=== PATIENT | female | born 1950 | race Caucasian/White ===

== ENCOUNTER 2023-05-12 02:11 | Inpatient (IN) | payer MEDICARE, BC, SELFPAY ==
[2023-05-12] VITALS (17 sets, daily range): BP systolic 90–154; BP diastolic 58–98; PULSE 55–96; RESP 14–22; TEMP 36.1–36.9; O2SAT 97–100; BMI 31.2
--- NOTE | ~2023-05-12 | XR_ITS ---
Portable chest x-ray Comparison: None Clinical History: Chest pain Findings: Lungs are clear, without focal consolidation or pleural effusion. Cardiomediastinal silho uette is unremarkable. Bones and soft tissues are unremarkable. Impression: Clear lungs. Reviewed, dictated and finalized at location M. [employer]IA Impression: Clear lungs.
--- NOTE | 2023-05-12 02:17 | ED.CHESTPAIN ---
HPI - Chest Pain General Chief Complaint: Chest Pain Stated Complaint: CP/STEMI Time Seen by Provider: 05/12/23 02:15 History of Present Illness HPI narrative: Patient is a 72-year-old female presenting as a STEMI alert. Patient states that her blood sugars were running high yesterday. She felt generally unwell but did not have any specific complaints. last night around 10:30 p.m. she developed substernal chest pain that has persisted for the last 3 hours. She called EMS obtained a 12 lead that showed an inferior STEMI. She received aspirin en route. On arrival, she continues to complain of chest pain. States that she also feels nauseated. Related Data Home Medications Medication Instructions Recorded Confirmed insulin aspart U-100 100 unit/mL 1 - 60 sliding scale dose subcut 05/12/23 05/12/23 (3 mL) subcutaneous pen (Novolog TID FlexPen U-100 Insulin aspart) insulin degludec 100 unit/mL (3 55 unit subcut DAILY 05/12/23 05/12/23 mL) subcutaneous pen (Tresiba FlexTouch U-100 insulin) Allergies Allergy/AdvReac Type Severity Reaction Status Date / Time SCALLOPS Allergy Mild Uncoded 01/01/09 13:57 Review of Systems Review of Systems: ROS unobtainable: Yes unobtainable due to medical condition [facility] Past Medical History Medical History (Updated 05/12/23 @ 02:57 by Robin hCance MD) Diabetes mellitus Social History Social History (Updated 05/12/23 @ 02:57 by Robin Chance MD) Smoking status: Never smoker Alcohol intake: former Substance use: never Lack of Transportation: No Lack of Food: Never True Current Housing: Decline to Answer Concerned About Future Housing: No Difficulty Paying Gas/Electric Bills: No Difficulty Paying for Meds: No Currently Unemployed: No Education: Decline to Answer Difficulty w/ Childcare or Family Care: No Spiritual care concerns: No Exam Narrative: GENERAL: Nontoxic, intermittently vomiting HEAD: Normocephalic, atraumatic. EYES: PERRLA and EOMI. ENT: grossly unremarkable NECK: Supple. CHEST: Clear to auscultation. No respiratory distress. HEART: Regular rate and rhythm. Normal peripheral pulses. ABDOMEN: Soft, nontender, nondistended EXTREMITIES: Normal range of motion. No edema. SKIN: Warm, dry, no rash. NEURO: No focal deficits. Alert and oriented x3. PSYCH: Normal mood and affect. Course Vital Signs Vital signs: Vital Signs Temperature 96.9 F L 05/12/23 02:09 Pulse Rate 92 05/12/23 02:09 Respiratory Rate 15 05/12/23 02:09 Blood Pressure 144/87 H 05/12/23 02:09 Pulse Oximetry 100 05/12/23 02:09 Oxygen Delivery Room Air 05/12/23 02:09 Temperature 98.2 F 05/13/23 03:58 Pulse Rate 75 05/13/23 04:00 Respiratory Rate 18 05/13/23 03:58 Blood Pressure 116/46 L 05/13/23 03:58 Pulse Oximetry 97 05/13/23 03:58 Oxygen Delivery Room Air 05/12/23 16:00 MDM - Chest Pain MDM Narrative Medical decision making narrative: 72-year-old female presenting as a STEMI alert. EKG on arrival confirms inferior STEMI with elevations in leads 2, 3, AVF with reciprocal depressions in the precordial leads. Patient already received aspirin. Fluids are ongoing. Morphine for pain. Will load with heparin and Brilinta. syrup machine laborer has been activated. Differential Diagnosis Differential diagnosis: Likely stable angina, unstable angina pectoris, atypical chest pain, st elevation myocardial infarction and chest pain Medical Records Data Attestation: I reviewed the patient's medical records. Lab Data Attestation: I reviewed the patient's lab results. 05/13/23 03:40 05/13/23 03:40 Labs: Lab Results 05/12/23 Range/Units 02:25 WBC 10.5 H (4.5-10.0) K/mm3 RBC 4.35 (4.2-5.4) M/mm3 Hgb 12.7 (12.0-15.0) g/dL Hct 38.8 (37.0-47.0) % MCV 89.2 (80-100) fl MCH 29.2 (26-34) pg MCHC 32.7 (32-36) g/dl RDW 13.0 (11.5-14.5) % Plt Count 366 (15
--- NOTE | 2023-05-12 02:20 | ECG_ITS ---
Measurements Intervals [place] Rate: 94 P: IA: 0 QRS: 87 QRSD: 101 T: 85 QT: 328 QTc: 411 Interpretive Statements ATRIAL FIBRILLATION ST ELEVATION, CONSIDER INFERIOR INFEROLATERAL MYOCARDIAL INFARCTION ACUTE WI NO PREVIOUS ECG AVAILABLE FOR COMPARISON Electronically Signed On 05-12-2023 13:28:17 HIV CTS SPECIALIST by Lisha Godlman M.D.
--- NOTE | 2023-05-12 02:21 | ECG_ITS ---
Measurements Intervals [place] Rate: 89 P: ME: 0 QRS: 79 QRSD: 101 T: 82 QT: 332 QTc: 404 Interpretive Statements ATRIAL FIBRILLATION INFEROLATERAL MYOCARDIAL INFARCTION, ACUTE WITH POSTERIOR EXTENSION [40+ ms Q WAVE AND/OR ST/T ABNORMALITY IN II/aVFPROMI ACUTE NM COMPARED TO ECG 05/12/2023 02:13:54 NO SIGNIFICANT CHANGES Electronically Signed On 05-12-2023 13:29:02 CARAMEL MAKER by Lisha Goldman M.D.
[2023-05-12 02:28] LABS: Glucose Point of Care 262 mg/dl (65-105)
[2023-05-12] MEDS: MORPHINE SULFATE (*CRX) 4 MG/ML INJ IV PUSH (02:29)
[2023-05-12] MEDS: TICAGRELOR 90 MG TABLET 180 MG PO ×2 (02:29→04:45)
[2023-05-12] MEDS: HEPARIN SODIUM 5,000 UNITS/ML VIAL 4000 UNITS IV PUSH (02:30)
[2023-05-12 02:31] LABS: Basophils Percent Auto 0.3 % (0.2-1.2); Eosinophils Percent Auto 0.1 % (0-4.4); Hematocrit 38.8 % (37.0-47.0); Hemoglobin 12.7 g/dL (12.0-15.0); Immature Granulocyte Absolute 0.05 K/mm3 (0.00-0.031); Immature Granulocyte Percent A 0.5 % (0-0.5); Lymphocytes Absolute Auto 1.07 K/mm3 (0.9-3.2); Lymphocytes Percent Auto 10.2 % (18.3-44.2); Mean Corpuscular HGB Conc 32.7 g/dl (32-36); Mean Corpuscular Hemoglobin 29.2 pg (26-34); Mean Corpuscular Volume 89.2 fl (80-100); Mean Platelet Volume 9.7 fl (7.4-10.4); Monocytes Absolute Auto 0.4 K/mm3 (0.1-0.6); Neutrophils Absolute Auto 8.9 K/mm3 (1.3-6.7); Neutrophils Percent Auto 84.9 % (45.5-73.1); Platelet Count Result 366 k/mm3 (150-375); Red Blood Count 4.35 M/mm3 (4.2-5.4); White Blood Count 10.5 K/mm3 (4.5-10.0)
[2023-05-12 02:41] LABS: INR 0.9; Prothrombin Time 12.3 Seconds (11.1-14.7)
[2023-05-12 02:42] LABS: Alanine Aminotransferase 139 U/L (6-35); Albumin Level 3.9 g/dL (3.5-5.1); Alkaline Phosphatase 92 U/L (38-126); Anion Gap 10 mmol/L (8-16); Aspartate Amino Transferase 265 U/L (14-36); Bilirubin,Total 0.6 mg/dL (0.2-1.3); Blood Urea Nitrogen 30 mg/dL (7-17); Calcium 8.7 mg/dL (8.4-10.2); Carbon Dioxide 22 mmol/L (22-30); Chloride 104 mmol/L (98-107); Cholesterol 303 mg/dL (0-200); Estimated CRCL calculation 51 ml/min; Estimated Glomerular Filt Rate > 60; Glucose 311 mg/dL (65-110); HDL Direct 82 mg/dL; Partial Thromboplastin Time 24.3 SECONDS (22.3-36.8); Potassium 3.6 mmol/L (3.4-5.0); Sodium 136 mmol/L (137-145); Triglycerides 109 mg/dL (<150)
[2023-05-12] MEDS: HYDROmorphone HCL INJ (*CRX) 1 MG/ML SYR 0.5 MG IV PUSH (02:43)
[2023-05-12 02:51] LABS: LDL Cholesterol Direct 173 mg/dL
--- NOTE | 2023-05-12 02:54 | PM.IMHP ---
H&P: HPI History of Present Illness Date/Time: 05/12/23 02:54 Chief Complaint: Chest pain for approximately 4 to 5 hours Narrative: 72-year-old female with past medical history of diabetes mellitus ( type 1 as per patient) on insulin; no known prior cardiac history. Patient presented to [facility] Emergency room via EMS with complaints of chest pain that started about 4-5 hours prior to arrival. Her symptoms are associated with shortness of breath, dizziness, nausea and vomiting. Field EKG showed atrial fibrillation with ST elevation in the inferior leads. Cardiac catheterization lab was activated. At the time of evaluation in the labor economics professor, patient was having ongoing chest discomfort. Her EKG on my personal interpretation showed atrial fibrillation with controlled ventricular response, ST elevation in the inferior leads with reciprocal ST depression. Patient denied any prior cardiac history including clinical CA. Emergent coronary angiogram showed 100% thrombotic occlusion of proximal RCA -infarct related vessel. Patient underwent primary PCI / x1 proximal -mid RCA using a Biotronik 4.0 x 30 mm sirolimus eluting stent. During reperfusion, patient became bradycardiac, and hypotensive and required 1 mg of IV atropine and 50 mcg phenylephrine. she was fluid resuscitated with normal saline and was initiated on dopamine IV. Patient had recurrent episodes of nausea and vomiting on the table. Post PCI, dopamine was discontinued with normalization of blood pressure. Patient converted to sinus rhythm/ sinus tachycardia post PCI. Her chest pain almost resolved post PCI. Review of Systems Review of Systems: General: Negative for fever, chills, fatigue Psychological: Negative for anxiety, depression Ophthalmic: negative for loss of vision ENT: Negative for epistaxis, headaches Allergy and immunology: Negative for hives, nasal congestion Hematologic and lymphatic: Negative for overt bleeding problems Endocrine: Negative for hot flashes, palpitations Respiratory: Negative for cough, hemoptysis Cardiovascular: Positive for chest pain, shortness of breath, dizziness Gastrointestinal: positive for nausea vomiting Musculoskeletal: Negative for myalgia, joint pains Neurological: Negative for weakness Dermatological: Negative for rash, skin discoloration PMFSH Past Medical History Medical History (Updated 05/12/23 @ 02:57 by Robin Chance MD) Diabetes mellitus Social History Social History (Updated 05/12/23 @ 02:57 by Robin Chance MD) Smoking status: Never smoker Alcohol intake: never Substance use: never Meds Home Medications and Allergies Allergies Allergy/AdvReac Type Severity Reaction Status Date / Time SCALLOPS Allergy Mild Uncoded 01/01/09 13:57 Vital Signs Vital Signs - 24 hr 05/12/23 02:09 05/12/23 02:38 05/12/23 02:40 Temperature 36.1 C L Pulse Rate 92 87 91 Respiratory Rate 15 14 Blood Pressure 144/87 H 154/93 H Pulse Oximetry 100 100 Oxygen Delivery Room Air Exam Narrative: PHYSICAL EXAMINATION: GENERAL: Alert, oriented, no acute distress MENTAL STATUS: very anxious EYES: Extraocular movements intact, no pallor EARS: External ears appear normal, hearing grossly normal NOSE: Normal and patent, no discharge MOUTH: Mucous membranes moist, tongue normal NECK: Supple, no JVD CHEST: Good respiratory effort, clear to auscultation HEART: normal rate, irregularly irregular rhythm at the time of examination, somewhat distant heart sounds. Patient converted to sinus rhythm/ sinus tachycardia in the labor economics professor post PCI ABDOMEN: Soft, nontender NEUROLOGICAL: Alert, oriented, normal speech, no gross motor deficits MUSCULOSKELETAL: No major deformity, no amputation EXTREMITIES: No pedal edema, no clubbing, no cyanosis SKIN: no rash on the exposed area, no cyanosis PSYCHIATRIC: very anxious H&P: Results Labs Labs: Short CBC
[2023-05-12 02:58] LABS: Troponin I 0.176 ng/mL (0.000-0.034)
--- NOTE | 2023-05-12 04:09 | WPDCARDPROC ---
Cardiac Cath Procedure Note Date of procedure:: 05/12/23 Performing physician:: Robin Chance MD Procedure Procedure note:: CARDIAC CATHETERIZATION AND PERCUTANEOUS CORONARY INTERVENTION REPORT DATE OF PROCEDURE: 05/12/2023 INDICATION FOR PROCEDURE: acute coronary syndrome/ inferior ST-elevation myocardial infarction BRIEF CLINICAL HISTORY: 72-year-old female with past medical history of diabetes mellitus ( type 1 as per patient) on insulin; no known prior cardiac history.? Patient presented to [facility] Emergency room via EMS with complaints of chest pain that started about 4-5 hours prior to arrival.? Her symptoms are associated with? shortness of breath, dizziness, nausea and vomiting.? Field EKG showed atrial fibrillation with ST elevation in the inferior leads.? Cardiac catheterization lab was activated.?At the time of evaluation in the offset label rewinder, patient was having ongoing chest discomfort.? Her EKG on my personal interpretation showed atrial fibrillation with controlled ventricular response, ST elevation in the inferior leads with reciprocal ST depression.? Patient denied any prior cardiac history including clinical DC. PROCEDURES PERFORMED: 1. Left heart catheterization- Selective left and right coronary angiogram; left ventriculogram and hemodynamic assessment 2. Primary percutaneous coronary intervention- a) balloon angioplasty and stenting of totally occluded proximal-mid RCA using a 4.0 x 30 mm Biotronik sirolimus eluting stent with caodaism of LINDA 3 flow; b) intravascular ultrasound ( IVUS) of right coronary artery 3. Deployment of Mynx hemostatic device 4. Moderate sedation-CPT code 32513 and beyond MODERATE SEDATION: Midazolam 1 mg; fentanyl 25 mcg. Start time 0300 , Stop time 0351 ; Total [id number] time 51 minutes; Darion Phoenix RN was trained observer for moderate sedation. ACCESS SITE: Right common femoral artery PROCEDURE NOTE: patient was emergently brought to catheterization lab and prepped and draped in a usual sterile manner. After local anesthesia with lidocaine, right common femoral artery access was taken with micropuncture needle followed by insertion of a 6 Malian sheath. Selective left and right coronary angiogram was performed using 5 Malian JL4 and 6 Malian JR4 guide guide catheter respectively. Orthogonal views were taken. After completion of PCI, a 5 Malian pigtail catheter was advanced in the LV cavity and was flushed with normal saline. LV pressure measurement was performed. After this, left ventriculogram was performed. The catheter was flushed again, and gradient across the aortic valve was measured on the pullback of the catheter. Angiographic findings and details of PCI are given below- FINDINGS: LEFT MAIN CORONARY: medium caliber, short vessel, no angiographically significant stenosis. Good reflux of contrast, no catheter damping seen. LEFT ANTERIOR DESCENDING ARTERY: Medium caliber, tortuous vessel, tapers distally and reaches the LV apex. Minimal plaque is seen in the mid segment. Major diagonal branch is a medium caliber vessel with 50-70% stenosis in the proximal segment. LEFT CIRCUMFLEX ARTERY: Medium caliber vessel with mild plaque in the proximal segment. Gives rise to very tortuous medium caliber OM 1 and small to medium caliber OM2 branches without significant focal stenosis. RIGHT CORONARY ARTERY: 100% thrombotic occlusion in the proximal segment with LINDA 0 flow prior to PCI, which was restored to LINDA 3 flow. After PCI, vessel is seen as large caliber vessel, gives rise to medium caliber PDA and PLV branches. LEFT VENTRICULOGRAM: Hyperdynamic LV function, EF more than 70%, LVEDP 14 mmHg. HEMODYNAMIC ASSESSMENT: Opening pressure 136/79 mmHg , closing pressure 137/65 mmHg , LVEDP 14 mmHg; no significant gradient across aortic valve on the pullback of pigtail catheter. INTERVENTION REPORT: patient was given aspirin loading dose of ticagrelor in
[2023-05-12] MEDS: SODIUM CHLORIDE 0.9% IV 1,000 ML 125 ML IV CONT (04:30)
[2023-05-12] MEDS: PANTOPRAZOLE SODIUM IV 40 MG VIAL IV PUSH (04:30)
[2023-05-12 08:18] LABS: Hemoglobin A1C 7.9 % (<5.7)
[2023-05-12 08:36] LABS: Glucose Point of Care 315 mg/dl (65-105)
[2023-05-12] MEDS: METOPROLOL TARTRATE 12.5 MG TABLET PO ×2 (08:40→20:15)
[2023-05-12] MEDS: ASPIRIN 81 MG ENTERIC TABLET PO (08:40)
--- NOTE | 2023-05-12 09:38 | PC.NURSE ---
Patient will only take her own insulin on her schedule. She has her home insulins with her. Dr. Ross ok order for her to take her home insulins. Orders put into the system for pharmacy to put in orders for her home insulins. Patient gave herself 20 units of Tresiba and 5 units of Novolog.
--- NOTE | 2023-05-12 10:53 | PM.PNCARD ---
Progress Note: A&P Assessment and Plan (1) ST elevation NM (STEMI): Code(s): I21.3 - ST elevation (STEMI) myocardial infarction of unspecified site Status: Acute Assessment and Plan: 72-year-old female with no known prior cardiac history, presented to the hospital with 4-5 hour history of chest pain EKG showed atrial fibrillation, inferior ST-elevation with reciprocal ST depression. Emergent cardiac catheterization showed 100% thrombotic occlusion of proximal RCA. Status post primary PCI / x1 proximal-mid RCA with yazidism of LINDA 3 flow. Left coronary angiogram showed tortuous coronary arteries, 50-70% stenosis in the major diagonal branch. LVEF more than 70%. LVEDP 14 mmHg. She was bradycardic and hypotensive during PCI, and required atropine, phenylephrine; and dopamine which was discontinued in the laborer pie bakery post PCI once patient's blood pressure normalized. Patient converted to sinus rhythm / sinus tachycardia in the laborer pie bakery post PCI. - Doing well s/p PCI. OK to downgrade to IMU. - Continue DAPT with ASA, Brilinta - High-intensity statin - Continue beta vicente - Echo pending - Cardiac rehab referral - Anticipate discharge tomorrow (2) Diabetes mellitus: Code(s): E11.9 - Type 2 diabetes mellitus without complications Status: Acute Assessment and Plan: optimal diabetes mellitus control. Monitor blood sugars. Subjective Date/time seen: 05/12/23 10:53 Interval history: Does cardiology follow-up for STEMI Feeling well this morning. She has not had any recurrent chest pain. Has had a few runs of NSVT on telemetry but is generally in sinus rhythm. Review of Systems Review of Systems: General: Negative for fever, chills, fatigue Psychological: Negative for anxiety, depression Ophthalmic: negative for loss of vision ENT: Negative for epistaxis, headaches Allergy and immunology: Negative for hives, nasal congestion Hematologic and lymphatic: Negative for overt bleeding problems Endocrine: Negative for hot flashes, palpitations Respiratory: Negative for cough, hemoptysis Cardiovascular: Positive for chest pain, shortness of breath, dizziness Gastrointestinal: positive for nausea vomiting Musculoskeletal: Negative for myalgia, joint pains Neurological: Negative for weakness Dermatological: Negative for rash, skin discoloration Exam Const: General: comfortable, no acute distress, alert and awake Orientation/consciousness: patient oriented x3 HENMT: Head: normal to inspection Eyes: General: appearance normal, both eyes and all related structures Pupils: Equal, round and reactive pupils present Neck: Neck: normal visual inspection, supple and no JVD Carotids: normal carotid upstroke Resp: Effort & Inspection: normal respiratory effort Auscultation: clear to auscultation bilaterally Cardio: Rate: regular rate Rhythm: regular rhythm Heart sounds: S1 normal heart sound present, S2 normal heart sound present and no murmurs GI: Auscultation: normal bowel sounds Skin: General skin exam: normal color Neuro: General: patient oriented x3 Cranial nerves: Yes Equal, round and reactive pupils present Extrem: General: normal to inspection Other: R groin arterial insertion site free from bleeding, hematoma, pain. Psych: Appearance: grossly normal Mental Status: mental status grossly normal Objective Data Vital Signs Vital Signs: Vital Signs - 24 hr 05/12/23 02:09 05/12/23 02:38 05/12/23 02:40 Temperature 36.1 C L Pulse Rate 92 87 91 Respiratory Rate 15 14 Blood Pressure 144/87 H 154/93 H Pulse Oximetry 100 100 Oxygen Delivery Room Air 05/12/23 05:15 05/12/23 06:00 05/12/23 06:00 Temperature Pulse Rate 91 74 74 Respiratory Rate 14 18 Blood Pressure 112/84 Pulse Oximetry 100 100 Oxygen Delivery Room Air 05/12/23 08:40 05/12/23 08:00 05/12/23 08:00 Temperature 36.8 C Pulse Rate 70 69 65
[2023-05-12 12:38] LABS: Glucose Point of Care 312 mg/dl (65-105)
[2023-05-12] MEDS: ONDANSETRON INJ 4 MG/2 ML VIAL IV PUSH (12:50)
--- NOTE | 2023-05-12 13:25 | PC.NURSE ---
1100 patient took 4 units of home novolog.
--- NOTE | 2023-05-12 13:58 | WPDCNINT ---
Assessment and Plan Assessment and plan (1) ST elevation LA (STEMI): Code(s): I21.3 - ST elevation (STEMI) myocardial infarction of unspecified site Status: Acute Assessment and Plan: Patient presented with chest pain, associated with nausea, vomiting and diaphoresis. EKG in the field showed ST elevation in the inferior leads and atrial fibrillation - Patient was taken to cardiac mechanical laboratory technician which she did get an angiogram status post PTCA/PCI with x1 to proximal mid RCA. During reperfusion patient did become bradycardic and hypotensive and required atropine and phenylephrine. She was resuscitated with IV fluids and dopamine infusion with improvement. Post perfusion dopamine was discontinued with normalization of blood pressures. Patient also converted to sinus rhythm post PCI. -patient is currently chest pain-free -continue aspirin, atorvastatin, ticagrelor -continue beta-vicente -cardiology following the patient (2) Diabetes mellitus: Code(s): E11.9 - Type 2 diabetes mellitus without complications Status: Acute Assessment and Plan: Patient on Tresiba and sliding scale insulin which he is managing by herself -hemoglobin A1c 7.9 this admission Plan DVT prophylaxis: Patient status post cardiac catheterization Stress ulcer prophylaxis: Not indicated Nutrition: Heart healthy diet Code Status: Full code Critical Care Time Spent: 46 minutes Due to a high probability of clinically significant, life threatening deterioration, the patient required my highest level of preparedness to intervene emergently and I personally spent this critical care time directly and personally managing the patient. This critical care time included obtaining a history; examining the patient; pulse oximetry; ordering and review of studies; arranging urgent treatment with development of a management plan; evaluation of patient's response to treatment; frequent reassessment; and discussions with other providers. It was exclusive of separately billable procedures and treating other patients and teaching time. Please see Assessment and Plan section and the rest of the note for further information on patient assessment and treatment This dictation may have been done utilizing a voice recognition system. Attempts have been made to correct errors. However, there may be uncorrected grammatical, spelling, and recognitions errors present. Brush Operator Consult Note Consult date: 05/12/23 Reason for consult: Chest pain, ST-elevation LA status post coronary angiogram status post PTCA/PCI with x1 to proximal mid RCA. HPI: Halina Sahni is a 72 year old female with past medical history of diabetes, no known prior cardiac history presented the ED on 05/12/2023 with complains of chest pain that started 4-5 hours prior to arrival in the ER. Patient stated she initially thought that it is heartburn. Chest pain was associated with shortness of breath, dizziness, nausea and vomiting. EKG in the field showed atrial fibrillation with ST elevation in the inferior leads. Patient was taken to cardiac mechanical laboratory technician which she did get an angiogram status post PTCA/PCI with x1 to proximal mid RCA. During reperfusion patient did become bradycardic and hypotensive and required atropine and phenylephrine. She was resuscitated with IV fluids and dopamine infusion with improvement. Post perfusion dopamine was discontinued with normalization of blood pressures. Patient also converted to sinus rhythm post PCI. Patient was transferred to the ICU for further management Patient seen examined the ICU this morning, is awake, alert, denies any chest pain shortness on breath, abdominal pain, nausea, vomiting. Complains of this feeling tired and fatigued. Patient is very worried about taking her insulin as she states she has manages her own insulin for years. Patient is hemodynamically stable, adequate urine output, afebrile Review of Systems Review of Systems: A
[2023-05-12] MEDS: TICAGRELOR 90 MG TABLET PO (16:19)
[2023-05-12 16:54] LABS: Glucose Point of Care 206 mg/dl (65-105)
--- NOTE | 2023-05-12 16:55 | PC.NURSE ---
Halina took 4 units of her novolog at 1500. Blood sugar at 1615 206. Spoke with Skylar Polk regarding her taking her own insulin on her schedule. She is aware. Spoke to Halina about her Brilinita cost of 123.00 per month. She had some questions about it. I called care coordination and left a message for them to see her in the morning regarding this.
--- NOTE | 2023-05-12 18:04 | PC.NURSE ---
This patient, Halina Sahni, was received from ICU12 on 05/12/23 at 1804. Patient/family oriented to unit policies and routines
[2023-05-12] MEDS: ATORVASTATIN 40 MG TABLET 80 MG PO (20:15)
[2023-05-12 23:41] LABS: Glucose Point of Care 200 mg/dl (65-105)
[2023-05-13] VITALS (12 sets, daily range): BP systolic 111–116; BP diastolic 46–59; PULSE 63–87; RESP 16–18; TEMP 36.2–36.8; O2SAT 97–100
[2023-05-13 04:08] LABS: Basophils Percent Auto 0.2 % (0.2-1.2); Eosinophils Percent Auto 0.1 % (0-4.4); Hematocrit 35.8 % (37.0-47.0); Hemoglobin 11.4 g/dL (12.0-15.0); Immature Granulocyte Absolute 0.03 K/mm3 (0.00-0.031); Immature Granulocyte Percent A 0.4 % (0-0.5); Lymphocytes Absolute Auto 2.37 K/mm3 (0.9-3.2); Lymphocytes Percent Auto 29.6 % (18.3-44.2); Mean Corpuscular HGB Conc 31.8 g/dl (32-36); Mean Corpuscular Hemoglobin 28.9 pg (26-34); Mean Corpuscular Volume 90.6 fl (80-100); Mean Platelet Volume 9.7 fl (7.4-10.4); Monocytes Absolute Auto 0.7 K/mm3 (0.1-0.6); Monocytes Percent Auto 8.6 % (2.6-8.5); Neutrophils Absolute Auto 4.9 K/mm3 (1.3-6.7); Neutrophils Percent Auto 61.1 % (45.5-73.1); Platelet Count Result 284 k/mm3 (150-375); Red Blood Count 3.95 M/mm3 (4.2-5.4); Red Cell Distribution Width 13.2 % (11.5-14.5)
[2023-05-13 04:14] LABS: Alanine Aminotransferase 136 U/L (6-35); Albumin Level 3.5 g/dL (3.5-5.1); Alkaline Phosphatase 83 U/L (38-126); Anion Gap 6 mmol/L (8-16); Aspartate Amino Transferase 324 U/L (14-36); Blood Urea Nitrogen 23 mg/dL (7-17); Calcium 8.9 mg/dL (8.4-10.2); Carbon Dioxide 27 mmol/L (22-30); Chloride 104 mmol/L (98-107); Estimated CRCL calculation 45 ml/min; Estimated Glomerular Filt Rate 54; Glucose 115 mg/dL (65-110); Magnesium 2.2 mg/dL (1.6-2.3); Phosphorus 3.6 mg/dL (2.5-4.5); Potassium 4.1 mmol/L (3.4-5.0); Sodium 137 mmol/L (137-145)
[2023-05-13] MEDS: TICAGRELOR 90 MG TABLET PO (04:14)
[2023-05-13 08:16] LABS: Glucose Point of Care 112 mg/dl (65-105)
[2023-05-13] MEDS: METOPROLOL TARTRATE 12.5 MG TABLET PO (08:52)
[2023-05-13] MEDS: ASPIRIN 81 MG ENTERIC TABLET PO (08:52)
--- NOTE | 2023-05-13 11:44 | PM.DS ---
DS: Admitting Diagnosis Discharge Date 05/13/2023 Admitting Diagnosis Inferolateral STEMI DS: Discharge Diagnosis Discharge Diagnosis (1) ST elevation NM (STEMI): Code(s): I21.3 - ST elevation (STEMI) myocardial infarction of unspecified site Status: Acute (2) Diabetes mellitus: Code(s): E11.9 - Type 2 diabetes mellitus without complications Status: Acute DS: Summary Hospital Course Hospital Course: 72-year-old female with no known prior cardiac history, presented to the hospital with 4-5 hour history of chest pain associated with shortness of breath, dizziness, nausea and recurrent episodes of vomiting.? EKG showed atrial fibrillation, inferior ST-elevation? with reciprocal ST depression.? Emergent cardiac catheterization showed 100% thrombotic occlusion of proximal RCA.? Status post primary PCI / x1 proximal-mid RCA with nondenominational of LINDA 3 flow.? Left coronary angiogram showed tortuous coronary arteries, 50-70% stenosis in the major diagonal branch.? LVEF more than 70%.? LVEDP 14 mmHg.? 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 In addition, she was bradycardic and hypotensive during PCI, and required atropine, phenylephrine; and? 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 Due to recurrent episodes of nausea and vomiting in the ammunition assembly ii laborer, patient was reloaded with ticagrelor 180 mg. Patient did not have any recurrence of atrial fibrillation after PCI. Patient to be on ASA 81mg once daily indefinitely. Brilinta 90mg BID for at least 1 year. High intensity statin. Beta vicente. LV grams shows normal LVEF. Echocardiogram results pending at this time. Will have patient follow up with Dr. Chance in the office. Status at Discharge Cognitive/behavioral status at discharge: Stable Functional status at discharge: independent ambulation Overall status at discharge: patient is back to baseline Time Spent with Patient Time attestation: Total time spent providing and/or coordinating discharge services: Exam Const: General: comfortable and no acute distress HENMT: Mouth: Yes moist mucous membranes Eyes: General: appearance normal, both eyes and all related structures Sclera: sclerae normal Neck: Neck: supple Resp: Effort & Inspection: normal respiratory effort Cardio: Rate: regular rate Rhythm: regular rhythm Heart sounds: no murmurs Skin: General skin exam: normal color Psych: Mental Status: mental status grossly normal Affect: normal affect DS: Data Data Completed and Pending Labs on day of discharge: Labs from last 24 hours 05/13/23 05/13/23 05/12/23 07:50 03:40 19:42 WBC 8.0 RBC 3.95 L Hgb 11.4 L Hct 35.8 L MCV 90.6 MCH 28.9 MCHC 31.8 L RDW 13.2 Plt Count 284 MPV 9.7 Immature Gran % (Auto) 0.4 Neut % (Auto) 61.1 Lymph % (Auto) 29.6 Bland % (Auto) 8.6 H Eos % (Auto) 0.1 Baso % (Auto) 0.2 Lymph # (Auto) 2.37 Bland # (Auto) 0.7 H Eos # (Auto) 0.0 Baso # (Auto) 0.0 Abs Immat Gran (auto) 0.03 Absolute Neuts (auto) 4.9 Absolute Nucleated RBC 0.0 Nucleated RBC % 0.0 Sodium 137 Potassium 4.1 Chloride 104 Carbon Dioxide 27 Anion Gap 6 L BUN 23 H Creatinine 1.00 Estim Creat Clear Calc 45 Estimated GFR 54 L Glucose 115 H POC Capillary Glucose 112 H 200 H Calcium 8.9 Phosphorus 3.6 Magnesium 2.2 Total Bilirubin 1.0 AST 324 H ALT 136 H Alkaline Phosphatase 83 Total Protein 6.0 L Albumin 3.5 05/12/23 05/12/23 16:25 12:28 WBC RBC Hgb Hct MCV MCH MCHC RDW Plt Count MPV Immature Gran % (Auto) Neut % (Auto) Lymph % (Auto) Bland % (Auto) Eos % (Auto) Baso % (Auto) Lymph # (Auto) Bland # (Auto) Eos # (Auto) Baso # (Auto) Abs Im
[2023-05-13 12:01] LABS: Glucose Point of Care 197 mg/dl (65-105)
[2023-05-13 13:51] LABS: Glucose Point of Care 410 mg/dl (65-105)
== END 2023-05-13 14:35 | disposition home or self-care (01) | DRG 322 ==
LOC: ANHED 02:45 → ANHICU 02:48 → ANHIMU 18:12
PROVIDERS: Internal Medicine; Admitting Provider Internal Medicine Cardiovascular Disease; Emergency Provider Emergency Medicine; Visit Provider Internal Medicine
PROC: 4A023N7 Measurement of Cardiac Sampling and Pressure, Left Heart, Percutaneous Approach (ICD-10-PCS; CPT 93452; principal; 2023-05-12 02:25)
PROC: 4A023N7 Measurement of Cardiac Sampling and Pressure, Left Heart, Percutaneous Approach (ICD-10-PCS; 2023-05-12 02:25)
PROC: 4A023N7 Measurement of Cardiac Sampling and Pressure, Left Heart, Percutaneous Approach (ICD-10-PCS; 2023-05-12 02:25)
PROC: 4A023N7 Measurement of Cardiac Sampling and Pressure, Left Heart, Percutaneous Approach (ICD-10-PCS; 2023-05-12 02:25)
DX: I21.19 ST elevation (STEMI) myocardial infarction involving other coronary artery of inferior wall (principal); I97.790 Other intraoperative cardiac functional disturbances during cardiac surgery; I47.10 Supraventricular tachycardia, unspecified; I25.10 Atherosclerotic heart disease of native coronary artery without angina pectoris; I48.91 Unspecified atrial fibrillation; R00.1 Bradycardia, unspecified; I95.89 Other hypotension; E11.9 Type 2 diabetes mellitus without complications; Z79.4 Long term (current) use of insulin
CPT/HCPCS: 36415; 71045; 80053; 80061; 82948; 83036; 83735; 84100; 84484; 85025; 85610; 85730; 86850; 86900; 86901; 92978; 93005; 93458; 96374; 96375; 99291; A9270; C1725; C1753; C1769; C1874; C1887; C1894; C9113; C9606; G0269; J0461; J0583; J1170; J1265; J1644; J2250; J2270; J2371; J2405; J3010; J7030; J7040